=== PATIENT | female | born 1995 | race Two or more races ===

== ENCOUNTER 2016-07-07 17:15 | Emergency (ER) | payer MEDICAID ==
[2016-07-07 17:45] LABS: SPECIFIC GRAVITY 1.025 (1.001-1.030); URINE BILIRUBIN NEGATIVE (NEGATIVE); URINE BLOOD NEGATIVE (NEGATIVE); URINE GLUCOSE (UA) NEGATIVE (NEGATIVE); URINE LEUKOCYTE ESTERASE NEGATIVE (NEGATIVE); URINE NITRITE NEGATIVE (NEGATIVE); URINE PROTEIN TRACE (NEGATIVE); URINE UROBILINOGEN NORMAL (0-1 mg/dl)
[2016-07-07 17:48] LABS: HCG,QUALITATIVE URINE POSITIVE
[2016-07-07 17:53] LABS: URINE APPEARANCE SL CLOUDY; URINE COLOR YELLOW
[2016-07-07 17:54] LABS: URINE BACTERIA 1+; URINE MUCUS 2+; URINE RBC 0 /hpf; URINE WBC 0-2 /hpf
[2016-07-07] MEDS ORDERED: ONDANSETRON 4 MG ODT TAB ONE (17:57)
[2016-07-07 19:23] LABS: ABSOLUTE NEUTROPHIL COUNT 4.9 K/mm3 (1.8-7.7); BASO % 0.6 % (0.2-1.0); EOS # 0.1 (0.0-0.5); EOS % 0.8 % (0.9-2.9); HEMATOCRIT 34.1 % (37.0-47.0); HEMOGLOBIN 11.5 gm/l (12.0-16.0); IMM NEUT% 0.3 % (0-1); LYMPH # 1.6 (1.0-4.8); LYMPH % 22.1 % (15-45); MEAN CELL VOLUME 86.8 fl (81.0-99.0); MEAN CORPUSCULAR HEMOGLOBIN 29.3 pg (27.0-31.0); MEAN CORPUSCULAR HGB CONC 33.7 g/dl (33.0-37.0); MEAN PLATELET VOLUME 10.4 fl (7.4-10.4); MONO # 0.6 (0.0-0.8); NEUT % 68.2 % (43-75); PLATELET COUNT 242 K/mm3 (130-400); RED CELL DISTRIBUTION WIDTH 13.2 % (11.5-14.5)
[2016-07-07 19:41] LABS: ALB/GLOB RATIO 1.3 (>1.0); CALCIUM 9.1 mg/dL (8.6-10.3)
== END 2016-07-07 20:04 | disposition home or self-care (01) ==
LOC: ED 17:15
DX: O26.891 Other specified pregnancy related conditions, first trimester (principal); R10.9 Unspecified abdominal pain; Z3A.09 9 weeks gestation of pregnancy
CPT/HCPCS: 83690; 81025; 85025; 80053; 81001; 99283 ×2; 36415; A9270